=== PATIENT | male | born 1975 | race African-American/Black ===

== ENCOUNTER 2022-03-05 11:53 | Emergency (ER) | payer MEDICAID ==
[~2022-03-05] VITALS: Ht 190.5 cm; Wt 144.2 kg
[2022-03-05] MEDS ORDERED: KETOROLAC 30 MG/ML 1ML VIAL IV ONE (13:35)
[2022-03-05 14:14] LABS: BASO # 0.1 10^3/uL (0.0-0.2); BASO % 0.7 % (0.0-1.0); EOS # 0.3 10^3/uL (0.0-0.5); EOS % 2.8 % (0.0-3.0); HEMATOCRIT 44.7 % (42.0-52.0); HEMOGLOBIN 14.1 g/dl (13.5-17.5); LYMPH # 3.5 10^3/uL (1.5-5.0); LYMPH % 34.8 % (24.0-44.0); MEAN CORPUSCULAR HEMOGLOBIN 25.9 pg (27.0-33.0); MEAN CORPUSCULAR HGB CONC 31.5 g/dl (32.0-36.5); MEAN CORPUSCULAR VOLUME 82.2 fl (80.0-96.0); MONO # 0.7 10^3/uL (0.0-0.8); MONO % 7.1 % (2.0-8.0); NEUTROPHILS # 5.3 10^3/uL (1.5-8.5); PLATELET COUNT, AUTOMATED 263 10^3/uL (150-450); RED BLOOD COUNT 5.44 10^6/uL (4.30-6.10); WHITE BLOOD COUNT 9.9 10^3/uL (4.0-10.0)
[2022-03-05 14:45] LABS: BLOOD UREA NITROGEN 10 MG/DL (7-18); CALCIUM LEVEL 8.6 MG/DL (8.5-10.1); CARBON DIOXIDE LEVEL 24 MEQ/L (21-32); CHLORIDE LEVEL 110 MEQ/L (98-107); CREATININE FOR GFR 0.97 MG/DL (0.70-1.30); GLOMERULAR FILTRATION RATE > 60.0 (>60); GLUCOSE, FASTING 92 MG/DL (70-100); POTASSIUM SERUM 4.5 MEQ/L (3.5-5.1); SODIUM LEVEL 141 MEQ/L (136-145)
[2022-03-05 14:47] LABS: CK-MB VALUE MASS 3.3 NG/ML (<3.6); MB/CK RELATIVE INDEX 0.51 (< OR =4)
[2022-03-05 15:13] VITALS: BP 132/82
== END 2022-03-05 15:15 | disposition home or self-care (01) ==
LOC: M ED 11:53
DX: R07.9 Chest pain, unspecified (principal); R00.1 Bradycardia, unspecified; I51.7 Cardiomegaly; I25.2 Old myocardial infarction; E11.9 Type 2 diabetes mellitus without complications; R74.8 Abnormal levels of other serum enzymes
CPT/HCPCS: 71046; 80048; 82550; 82553; 84484; 85025; 85652; 86140; 93005; 96374; 99284; J1885

== ENCOUNTER 2022-05-23 21:39 | Emergency (ER) | payer MEDICAID, OTHER ==
[~2022-05-23] VITALS: Ht 190.5 cm; Wt 144.9 kg
[2022-05-23 23:23] LABS: BASO # 0.1 10^3/uL (0.0-0.2); BASO % 0.5 % (0.0-1.0); EOS # 0.3 10^3/uL (0.0-0.5); EOS % 2.4 % (0.0-3.0); HEMATOCRIT 46.3 % (42.0-52.0); HEMOGLOBIN 14.8 g/dl (13.5-17.5); LYMPH # 2.9 10^3/uL (1.5-5.0); LYMPH % 25.3 % (24.0-44.0); MEAN CORPUSCULAR HEMOGLOBIN 25.6 pg (27.0-33.0); MONO # 0.9 10^3/uL (0.0-0.8); MONO % 7.5 % (2.0-8.0); NEUTROPHILS # 7.3 10^3/uL (1.5-8.5); PLATELET COUNT, AUTOMATED 264 10^3/uL (150-450); RED BLOOD COUNT 5.79 10^6/uL (4.30-6.10); WHITE BLOOD COUNT 11.5 10^3/uL (4.0-10.0)
[2022-05-23 23:40] LABS: INR 1.03; PROTHROMBIN TIME 13.9 SECONDS (12.7-14.5)
[2022-05-24 00:22] LABS: ALBUMIN 3.2 GM/DL (3.2-5.2); ALT/SGPT 56 U/L (12-78); BILIRUBIN,DIRECT 0.2 MG/DL (0.0-0.2); BILIRUBIN,TOTAL 0.8 MG/DL (0.2-1.0); BLOOD UREA NITROGEN 13 MG/DL (7-18); CARBON DIOXIDE LEVEL 27 MEQ/L (21-32); CHLORIDE LEVEL 107 MEQ/L (98-107); CREATININE FOR GFR 0.99 MG/DL (0.70-1.30); GLOMERULAR FILTRATION RATE > 60.0 (>60); GLUCOSE, FASTING 122 MG/DL (70-100); LIPASE 113 U/L (73-393); NT-PRO BNP 15 PG/ML (<125); POTASSIUM SERUM 5.1 MEQ/L (3.5-5.1); SODIUM LEVEL 139 MEQ/L (136-145); TOTAL PROTEIN 7.5 GM/DL (6.4-8.2)
[2022-05-24 00:42] LABS: CK-MB VALUE MASS 3.3 NG/ML (<3.6); MB/CK RELATIVE INDEX 0.32 (< OR =4)
[2022-05-24] MEDS ORDERED: KETOROLAC 30 MG/ML 1ML VIAL IV ONE (05:55)
[2022-05-24 08:00] VITALS: BP 138/98
== END 2022-05-24 08:06 | disposition home or self-care (01) ==
LOC: M ED 21:39
DX: R07.89 Other chest pain (principal); R51.9 Headache, unspecified; I45.19 Other right bundle-branch block
CPT/HCPCS: 71046; 80048; 80076; 82550; 82553; 83690; 83880; 84484; 85025; 85610; 87486; 87581; 87633; 87798; 93005; 96374; 99284; J1885

== ENCOUNTER → 2022-08-16 | Outpatient (REF) | payer OTHER ==
[2022-08-16 17:41] LABS: ALBUMIN 3.7 GM/DL (3.2-5.2); ALT/SGPT 51 U/L (12-78); BILIRUBIN,TOTAL 0.3 MG/DL (0.2-1.0); BLOOD UREA NITROGEN 14 MG/DL (7-18); CALCIUM LEVEL 9.1 MG/DL (8.5-10.1); CARBON DIOXIDE LEVEL 27 MEQ/L (21-32); CHLORIDE LEVEL 107 MEQ/L (98-107); CHOLESTEROL LEVEL 193 MG/DL (<200); CHOLESTEROL RISK RATIO 4.825 (<5); CREATININE FOR GFR 1.04 MG/DL (0.70-1.30); GLOMERULAR FILTRATION RATE > 60.0 (>60); GLUCOSE, FASTING 99 MG/DL (70-100); HDL CHOLESTEROL 40 MG/DL (>40); LDL CHOLESTEROL 133 MG/DL (<100); NON-HDL-C 153 MG/DL; POTASSIUM SERUM 4.4 MEQ/L (3.5-5.1); SODIUM LEVEL 137 MEQ/L (136-145); THYROID STIMULATING HORMONE 0.794 uIU/ML (0.358-3.740); TOTAL PROTEIN 7.5 GM/DL (6.4-8.2); TRIGLYCERIDES LEVEL 99 MG/DL (<150)
[2022-08-16 20:45] LABS: HEMOGLOBIN A1c 6.3 %
== END ==
LOC: M LAB REF 16:26
PROVIDERS: ATTEND Nurse Practitioner Family
DX: Z13.228 Encounter for screening for other metabolic disorders (principal)

== ENCOUNTER → 2022-10-14 | Outpatient (REF) | payer OTHER ==
[2022-10-14 13:30] LABS: HEMOGLOBIN A1c 5.8 % (4.0-6.0)
[2022-10-14 13:40] LABS: HIV 1&2 SCREEN CENTAUR NEGATIVE (NEGATIVE)
[2022-10-14 13:47] LABS: HEPATITIS C VIRUS ABY INDEX 0.2 INDEX (<0.8)
== END ==
LOC: M LAB REF 12:15
PROVIDERS: ATTEND Nurse Practitioner Family
DX: Z11.9 Encounter for screening for infectious and parasitic diseases, unspecified (principal); R73.03 Prediabetes